=== PATIENT | male | born 1945 | race Native Hawaiian/Other Pacific Islander ===

== ENCOUNTER 2021-06-02 18:46 | Emergency (ER) | payer OTHER ==
[~2021-06-02] VITALS: Ht 170.2 cm; Wt 95.3 kg
[2021-06-02 19:10] LABS: PLATELET COUNT 336 K/uL (142-355)
[2021-06-02 19:20] LABS: POTASSIUM 3.7 mmol/L (3.6-5.2)
[2021-06-02 20:54] VITALS: BP 133/82; TEMP 98.8
[2021-06-03] MEDS ORDERED: AMLODIPINE BESYLATE PO (16:45)
[2021-06-03] MEDS ORDERED: ESCI20TA PO (16:46)
[2021-06-03] MEDS ORDERED: METF500T PO ×2 (16:46→16:48)
[2021-06-03] MEDS ORDERED: MEMA5TAB PO (16:47)
[2021-06-03] MEDS ORDERED: OXCARBAZEPIN300 MG PO (16:49)
[2021-06-03] MEDS ORDERED: BUSPIRONE10 MG PO (16:50)
[2021-06-03] MEDS ORDERED: MIRTAZAPINE7.5 MG PO (16:52)
[2021-06-03] MEDS ORDERED: RISP0.25 PO (16:52)
[2021-06-03] MEDS ORDERED: TRAZ50TA36 PO (16:53)
== END 2021-06-02 21:57 | disposition still patient (30) ==
LOC: ED 18:46
PROVIDERS: Emergency Medicine
DX: G30.8 Other Alzheimer's disease (principal); F02.80 Dementia in other diseases classified elsewhere, unspecified severity, without behavioral disturbance, psychotic disturbance, mood disturbance, and anxiety; R45.1 Restlessness and agitation; I48.91 Unspecified atrial fibrillation; Z11.52 Encounter for screening for COVID-19; Z04.6 Encounter for general psychiatric examination, requested by authority
CPT/HCPCS: 36415; 80053; 81000; 85027; 87635; 93005; 99283; U0003

== ENCOUNTER 2021-07-16 16:10 | Emergency (ER) | payer OTHER ==
[~2021-07-16] VITALS: Ht 172.7 cm; Wt 82.6 kg
[~2021-07-16 16:10] MED LIST: AMLODIPINE BESYLATE PO; BUSP15TAB2 PO; BUSPIRONE10 MG PO; CHOL100034 PO; CYAN10009 IM; ESCI20TA PO; FOLI1TAB26 PO; MEMA10TA2 PO; MEMA5TAB PO; METF500T PO; MIRTAZAPINE7.5 MG PO; OXCARBAZEPIN300 MG PO; RISP0.25 PO; TRAZ50TA36 PO; WELLBUTRIN150 MG PO
[2021-07-16 16:27] LABS: PLATELET COUNT 237 K/uL (142-355)
[2021-07-16 16:33] LABS: POTASSIUM 3.6 mmol/L (3.6-5.2)
[2021-07-16 18:40] VITALS: BP 168/83; TEMP 99.4
[2021-07-17] MEDS ORDERED: RISP0.25 PO (10:22)
[2021-07-17] MEDS ORDERED: TRAZODONE HYDRO50 MG PO (10:25)
[2021-07-17] MEDS ORDERED: CYAN10009 IM ×2 (10:28→10:29)
== END 2021-07-16 18:30 | disposition still patient (30) ==
LOC: ED 16:10
PROVIDERS: Emergency Medicine Emergency Medical Services
DX: Z91.14 Patient's other noncompliance with medication regimen (principal); F32.89 Other specified depressive episodes; Z11.52 Encounter for screening for COVID-19; Z04.6 Encounter for general psychiatric examination, requested by authority
CPT/HCPCS: 80053; 85027; 87635; 93005; 99283; U0003